=== PATIENT | female | born 1965 | race Hispanic/Latino ===

== ENCOUNTER 2021-06-06 06:02 | Observation (INO) | payer BC ==
[2021-06-05 15:05] LABS: BASOPHILS % (AUTO) 0.5 % (0.0-5.0); EOSINOPHILS % (AUTO) 1.9 % (0.0-8.0); HEMATOCRIT 41.5 % (36-48); LYMPHOCYTES % (AUTO) 46.5 % (21.0-51.0); MEAN CORPUSCULAR HEMOGLOBIN 29.3 pg (27.0-33.0); MEAN CORPUSCULAR HGB CONC 32.5 g/dL (32.0-36.0); MEAN CORPUSCULAR VOLUME 90.2 fL (79-99); MONOCYTES % (AUTO) 9.2 % (3.0-13.0); NEUTROPHILS % (AUTO) 41.4 % (40.0-77.0); PLATELET COUNT (AUTO) 245 K/uL (130-400); RED CELL DISTRIBUTION WIDTH 14.6 % (11.0-15.5); WHITE BLOOD COUNT (AUTO) 7.4 K/uL (4.8-10.8)
[2021-06-05 15:17] LABS: INR 1.06 (0.85-1.15); PROTHROMBIN TIME 11.5 SEC (9.6-11.6)
[2021-06-05 15:19] LABS: PARTIAL THROMBOPLASTIN TIME 28.1 SEC (26.3-35.5)
[2021-06-05 15:20] VITALS: BP 127/83
[2021-06-05 15:26] LABS: CREATININE 0.6 mg/dL (0.5-1.5); POTASSIUM 3.8 mmol/L (3.5-5.1)
[2021-06-06] VITALS (22 sets, daily range): BP systolic 104–147; BP diastolic 58–76
[~2021-06-06] VITALS: Ht 152.4 cm; Wt 94.3 kg
[~2021-06-06 06:02] MED LIST: 0.9% NACL 500ML IV.SOLN 500 ML IV SCH; ASCO500T20 PO; BETH25 PO; DIGO125T71 PO; FLAX100020 PO; FOLIC ACID PO; GABA-529 PO; ICOS1CAP PO; LEFL10TA19 PO; LEVO88CA4 PO; MAGN400T40 PO; METF-444 PO; METO-391 PO; METO-409 PO; MONT10TA32 PO; NABU-143 PO; OLME20TA22 PO; OMEP20TA25 PO; ONDA8TAB12 PO; RIVA20TA PO; [UNRECOGNIZED DRUG - OTHER] PO
[2021-06-06] MEDS ORDERED: LIDOCAINE HCL MPF 1% 5ML VIAL ONE (07:03)
[2021-06-06] MEDS ORDERED: LIDOCAINE PF 100MG/5ML (2%) SYRINGE 5ML ONE (07:13)
[2021-06-06] MEDS ORDERED: PROPOFOL 10 MG/ML 20ML VIAL IV ONE (07:13)
[2021-06-06] MEDS ORDERED: ROCURONIUM 10MG/1ML SYR 10 MG/ML ML ONE (07:13)
[2021-06-06] MEDS ORDERED: ONDANSETRON 4MG INJ ONE (07:13)
[2021-06-06] MEDS ORDERED: MIDAZOLAM HCL 1 MG/ML 2ML VIAL ONE (07:13)
[2021-06-06] MEDS ORDERED: FENTANYL CITRATE PF 50 MCG/1 ML 2ML VIAL ONE ×3 (07:14→12:50)
[2021-06-06] MEDS ORDERED: LIDOCAINE HCL 400MG/20ML VIAL ONE (07:27)
[2021-06-06] MEDS ORDERED: HEPARIN 10,000 UNIT/10ML (1,000 UNIT/ML) VIAL ONE ×3 (07:27→11:29)
[2021-06-06] MEDS ORDERED: PROP325C5 PO (07:54)
[2021-06-06] MEDS ORDERED: PHENYLEPHRINE HCL 10 MG/ML 1ML VIAL IV ONE ×2 (08:03→11:21)
[2021-06-06] MEDS ORDERED: GLYCOPYRROLATE 1 MG/5 ML SYRINGE ONE ×2 (08:50→12:49)
[2021-06-06] MEDS ORDERED: EPINEPHRINE PF 1MG AMP ONE (08:52)
[2021-06-06] MEDS ORDERED: EPHEDRINE SULFATE 50 MG/ML AMPULE ONE (09:29)
[2021-06-06] MEDS ORDERED: 0.9%NACL 1000ML 1,000 ML IV ONE (10:55)
[2021-06-06] MEDS ORDERED: ISOPROTERENOL HCL 0.2 MG/ML AMP/VIAL/BAG ONE (12:15)
[2021-06-06] MEDS ORDERED: PROTAMINE SULFATE 10 MG/ML 25ML VIAL IV ONE (12:30)
[2021-06-06] MEDS ORDERED: NEOSTIGMINE 5MG/5ML SYR IV ONE (12:49)
[2021-06-06] MEDS ORDERED: ONDANSETRON ODT 4MG TAB PO PRN (13:30)
[2021-06-06] MEDS: PANTOPRAZOLE 40 MG TAB DR PO SCH (13:30)
[2021-06-06] MEDS ORDERED: NABUMETONE 750 MG PO PRN (13:30)
[2021-06-06] MEDS: SUCRALFATE 1 GM TABLET PO SCH ×2 (13:30→18:04)
[2021-06-06] MEDS: BETHANECHOL CHLORIDE 25 MG TABLET PO SCH ×2 (14:00→21:09)
[2021-06-06] MEDS: GABAPENTIN 100 MG CAPSULE PO SCH ×2 (14:00→21:10)
[2021-06-06] MEDS: METFORMIN HCL 500 MG TABLET PO SCH (16:26)
[2021-06-06] MEDS: ACETAMINOPHEN 325 MG TAB PO PRN (16:44)
[2021-06-06] MEDS ORDERED: METOPROLOL SUCCINATE 50 MG TAB.SR.24H PO SCH (21:00)
[2021-06-06] MEDS ORDERED: RIVAROXABAN 20 MG TABLET PO SCH (21:00)
[2021-06-06] MEDS: **HM**(Icosapent Ethyl (Vascepa) 2 GM PO SCH (21:00)
[2021-06-06] MEDS ORDERED: ASCORBIC ACID 500 MG TAB PO SCH (21:00)
[2021-06-06] MEDS ORDERED: MONTELUKAST SODIUM 10 MG TAB PO SCH (21:00)
[2021-06-06] MEDS ORDERED: FOLIC ACID 1 MG TABLET PO SCH (21:00)
[2021-06-07] VITALS: BP 154/67
[2021-06-07] MEDS: SUCRALFATE 1 GM TABLET PO SCH ×3 (00:22→11:53)
[2021-06-07] MEDS: ACETAMINOPHEN 325 MG TAB PO PRN (00:26)
[2021-06-07 03:31] VITALS: BP 148/62
[2021-06-07] MEDS ORDERED: LEVOTHYROXINE 88 MCG TABLET PO SCH (06:30)
[2021-06-07 08:00] VITALS: BP 158/78
[2021-06-07] MEDS: METFORMIN HCL 500 MG TABLET PO SCH (08:37)
[2021-06-07] MEDS: BETHANECHOL CHLORIDE 25 MG TABLET PO SCH ×2 (08:37→14:03)
[2021-06-07] MEDS: PANTOPRAZOLE 40 MG TAB DR PO SCH (08:37)
[2021-06-07] MEDS: GABAPENTIN 100 MG CAPSULE PO SCH ×2 (08:37→14:03)
[2021-06-07] MEDS ORDERED: METOPROLOL SUCCINATE 50 MG TAB.SR.24H PO SCH (09:00)
[2021-06-07] MEDS ORDERED: LOSARTAN 100 MG TABLET PO SCH (09:00)
[2021-06-07] MEDS ORDERED: [UNRECOGNIZED DRUG - OTHER] PO SCH (09:00)
[2021-06-07] MEDS ORDERED: MAGNESIUM OXIDE 400 MG TABLET PO SCH (09:00)
[2021-06-07] MEDS: **HM**(Icosapent Ethyl (Vascepa) 2 GM PO SCH (09:00)
[2021-06-07] MEDS ORDERED: NON-FORMULARY MEDICATION 1 EACH (Omeprazole 20 MG) PO SCH (09:00)
[2021-06-07] MEDS ORDERED: **HM**(Leflunomide 10 MG PO SCH (09:00)
[2021-06-07] MEDS ORDERED: CARAL PO (09:54)
[2021-06-07 11:53] VITALS: BP 139/63
== END 2021-06-07 14:50 | disposition home or self-care (01) ==
LOC: DAH 06:02 → DAHIP 06:03 → 4DH 14:36
PROVIDERS: ADMIT Internal Medicine; ATTEND Internal Medicine
DX: I48.0 Paroxysmal atrial fibrillation (principal); Z20.822 Contact with and (suspected) exposure to COVID-19; I10 Essential (primary) hypertension; E78.5 Hyperlipidemia, unspecified; E03.9 Hypothyroidism, unspecified; E11.9 Type 2 diabetes mellitus without complications; M32.9 Systemic lupus erythematosus, unspecified; M06.9 Rheumatoid arthritis, unspecified; M79.7 Fibromyalgia; E66.01 Morbid (severe) obesity due to excess calories; Z79.899 Other long term (current) drug therapy; Z88.0 Allergy status to penicillin
CPT/HCPCS: 36415; 80048; 82948 ×5; 85025; 85347 ×9; 85610; 85730; 87635; 93005 ×2; 93613; 93622; 93623; 93656; 93657; 93662; 96360; 96361; A4215; A4344; A4649 ×2; C1730; C1731; C1732; C1893; C1894 ×4; C9803; G0378 ×32; J0171; J1644 ×5; J2001; J2250; J2370 ×2; J2405; J2704; J2710; J2720; J3010 ×3; J3490 ×6; J7030; 93621